=== PATIENT | female | born 1980 | race American Indian/Alaskan Native ===

== ENCOUNTER 2017-09-15 02:10 | Emergency (ER) | payer MEDICAID ==
[2017-09-15 04:25] LABS: Basophils % (Auto) 0.8 % (0.0-1.8); Eosinophils % (Auto) 2.1 % (0.0-4.3); Hemoglobin 13.5 gm/dl (10.1-14.3); Mean Corpuscular HGB Conc 32 % (30-34); Mean Corpuscular Volume 74 fl (79-97); Platelet Count 261 K/mm3 (140-440); Red Blood Count 5.65 M/mm3 (3.65-5.03); Red Cell Distribution Width 17.7 % (13.2-15.2); White Blood Count 6.6 K/mm3 (4.5-11.0)
[2017-09-15 04:35] LABS: Mean Corpuscular Hemoglobin 24 pg (28-32)
[2017-09-15 04:47] LABS: Alanine Aminotransferase 18 units/L (7-56); Albumin 3.7 g/dL (3.9-5); Albumin/Globulin Ratio 1.7 %; Alkaline Phosphatase 52 units/L (35-129); Anion Gap 13 mmol/L; BUN/Creatinine Ratio 14; Bilirubin,Total < 0.20 mg/dL (0.1-1.2); Blood Urea Nitrogen 11 mg/dL (7-17); Calcium 8.8 mg/dL (8.4-10.2); Carbon Dioxide 27 mmol/L (22-30); Glucose 102 mg/dL (65-100); Lipase 27 units/L (13-60); Potassium 4.1 mmol/L (3.6-5.0); Sodium 140 mmol/L (137-145); Total Protein 5.9 g/dL (6.3-8.2)
[2017-09-15 05:31] LABS: Bilirubin,Urine NEG (Negative); Blood,Urine NEG (Negative); Ketones,Urine NEG (Negative); Leukocyte Esterase,Urine NEG (Negative); Mucus,Urine FEW /HPF; Nitrite,Urine NEG (Negative); Protein,Urine <15 mg/dL mg/dL (Negative); Urobilinogen,Urine < 2.0 mg/dL (<2.0)
[2017-09-15] MEDS ORDERED: TORADOL IM ONE (08:55)
[2017-09-15 09:05] VITALS: BP 117/79
--- NOTE | 2017-09-15 15:33 | Emergency Department Report ---
HPI - General Chief Complaint: Abdominal Pain Time Seen by Provider: 09/15/17 08:55 - HPI HPI: The patient is a 37-year-old female presents for evaluation of abdominal pain. The patient reports left lower quadrant abdominal pain for the past one month, constant for the past one day, 8/10 in severity, crampy in quality, consistent with previous episodes of ovarian cyst pain. The patient denies fever, chills, night sweats, diarrhea, blood in the stool, dark tarry stool, dysuria, hematuria , flank pain, genital discharge, inability to pass flatus. ED Past Medical Hx - Past Medical History Previous Medical History?: Yes Hx Liver Disease: Yes Additional medical history: PCOS Fibroids and Cysts - Surgical History Past Surgical History?: Yes Additional Surgical History: C section x2 - Social History Smoking Status: Current Every Day Smoker Substance Use Type: None - Medications Home Medications: Home Medications Medication Instructions Recorded Confirmed Last Taken Type HYDROcodone/APAP 7.5-325 [[place] 1 each PO Q8HR PRN #10 tablet 09/15/17 Unknown Rx 7.5-325 mg TAB] Ibuprofen [Motrin] 800 mg PO Q8HR PRN #15 tablet 09/15/17 Unknown Rx ED Review of Systems ROS: Stated complaint: GENERAL BODY PAINS Other details as noted in HPI Constitutional: denies: fever ENT: denies: throat or neck pain Respiratory: denies: cough, shortness of breath Cardiovascular: denies: chest pain Endocrine: denies unexplained weight loss or gain Gastrointestinal: reports abdominal pain, nausea Genitourinary: denies: dysuria Musculoskeletal: denies: leg swelling Skin: denies: rash Neurological: denies: headache Hematological/Lymphatic: denies: easy bleeding or easy bruising Psych: denies sadness or hopelessness Physical Exam - Physical Exam Vital Signs: Vital Signs 09/15/17 09/15/17 09/15/17 03:46 06:35 06:40 Temperature 98.3 F Pulse Rate 62 Respiratory 100 H 18 Rate Blood Pressure 121/78 114/70 Blood Pressure 121/78 [Right] O2 Sat by Pulse 100 99 Oximetry 09/15/17 09/15/17 09/15/17 06:45 07:00 07:15 Temperature Pulse Rate Respiratory Rate Blood Pressure 114/70 104/68 104/68 Blood Pressure [Right] O2 Sat by Pulse 99 97 98 Oximetry 09/15/17 09/15/17 09/15/17 07:30 07:45 07:50 Temperature 97.9 F Pulse Rate 62 Respiratory 16 Rate Blood Pressure 105/64 105/64 Blood Pressure 105/64 [Right] O2 Sat by Pulse 97 100 99 Oximetry Physical Exam: General: well-nourished, well-developed, no acute distress Head: Normocephalic, atraumatic Eyes: normal sclera ENT: Mucous membranes are pink and moist Neck: trachea midline, neck supple, No neck stiffness, no cervical adenopathy Respiratory: Breath sounds equal bilaterally, no wheezing, rales, or rhonchi Cardio: S1 and S2 present, no murmurs, rubs, gallops, capillary refill is brisk Abdomen: Normoactive bowel sounds, soft abdomen, LLQ abd pain, no rigidity, no guarding or rebound tenderness Chest WALL/Back: No tenderness to palpation of the chest wall, no CVA tenderness with percussion Musc: No pitting edema Skin: No rash Neuro: no facial drooping, normal speech Psych: Normal affect ED Course Vital Signs 09/15/17 09/15/17 09/15/17 03:46 06:35 06:40 Temperature 98.3 F Pulse Rate 62 Respiratory 100 H 18 Rate Blood Pressure 121/78 114/70 Blood Pressure 121/78 [Right] O2 Sat by Pulse 100 99 Oximetry 09/15/17 09/15/17 09/15/17 06:45 07:00 07:15 Temperature Pulse Rate Respiratory Rate Blood Pressure 114/70 104/68 104/68 Blood Pressure [Right] O2 Sat by Pulse 99 97 98 Oximetry 09/15/17 09/15/17 09/15/17 07:30 07:45 07:50 Temperature 97.9 F Pulse Rate 62 Respiratory 16 Rate Blood Pressure 105/64 105/64 Blood Pressure 105/64 [Right] O2 Sat by Pulse 97 100 99 Oximetry ED Medical Decision Making - Lab Data Result diagrams: 09/15/17 04:07 09/15/17 04:07 - Medical Decision Making The patient was seen and examined by myself. The patient is placed on a radiographer cardiac catheterization and continuous pulse ox. On initial evaluation, the patient was found to be in no distress. Evaluation orders are placed. The patient is given pain medicine. Lab results were non-concerning including WBC, hemoglobin, hematocrit, electrolytes, renal function, LFTs, lipase, urinalysis, and negative tests.. The patient was reevaluated and reported that their symptoms were markedly improved. The patient is stable for discharge with outpatient follow-up. The patient is given follow-up and return instructions. The patient expressed understanding and agreed with the plan. The patient is discharged in stable condition. Critical care attestation.: If time is entered above; I have spent that time in minutes in the direct care of this critically ill patient, excluding procedure time. ED Disposition Clinical Impression: Abdominal pain, acute, left lower quadrant Disposition: TO HOME OR SELFCARE Is pt being admited?: No Does the pt Need Aspirin: No Condition: Stable Instructions: Ovarian Cyst (ED), Uterine Fibroids (ED), Abdominal Pain (ED) Prescriptions: HYDROcodone/APAP 7.5-325 [[place] 7.5-325 mg TAB] 1 each PO Q8HR PRN #10 tablet PRN Reason: Pain Ibuprofen [Motrin] 800 mg PO Q8HR PRN #15 tablet PRN Reason: Pain Referrals: PRIMARY CARE, [Primary Care Provider] - 3-5 Days [facility] [Provider Group] - 3-5 Days Time of Disposition: 08:56
== END 2017-09-15 09:28 | disposition home or self-care (01) ==
LOC: ED 02:10
DX: R10.32 Left lower quadrant pain (principal); F17.200 Nicotine dependence, unspecified, uncomplicated
CPT/HCPCS: 36415; 80053; 81001; 83690; 84703; 85025; 96372; 99284; J1885

== ENCOUNTER 2018-03-22 20:48 | Emergency (ER) | payer MEDICAID ==
[2018-03-22] MEDS ORDERED: ASPIRIN PO ONE (22:10)
[2018-03-22 22:53] LABS: Basophils # (Auto) 0.1 K/mm3 (0.0-0.1); Basophils % (Auto) 0.7 % (0.0-1.8); Eosinophils # (Auto) 0.2 K/mm3 (0.0-0.4); Eosinophils % (Auto) 2.1 % (0.0-4.3); Hematocrit 45.2 % (30.3-42.9); Hemoglobin 14.9 gm/dl (10.1-14.3); Lymphocytes # (Auto) 3.1 K/mm3 (1.2-5.4); Lymphocytes % (Auto) 35.5 % (13.4-35.0); Mean Corpuscular HGB Conc 33 % (30-34); Mean Corpuscular Volume 79 fl (79-97); Monocytes # (Auto) 0.7 K/mm3 (0.0-0.8); Monocytes % (Auto) 7.5 % (0.0-7.3); Platelet Count 207 K/mm3 (140-440); Red Blood Count 5.76 M/mm3 (3.65-5.03); Red Cell Distribution Width 16.1 % (13.2-15.2)
[2018-03-22 22:54] LABS: Mean Corpuscular Hemoglobin 26 pg (28-32)
[2018-03-22 23:08] LABS: BUN/Creatinine Ratio 20; Blood Urea Nitrogen 18 mg/dL (7-17); Calcium 8.7 mg/dL (8.4-10.2); Hemolysis Index 2
[2018-03-22 23:26] LABS: Bilirubin,Urine NEG (Negative); Blood,Urine NEG (Negative); Color,Urine Yellow (Yellow); Mucus,Urine FEW /HPF; Protein,Urine <15 mg/dL mg/dL (Negative); Urobilinogen,Urine < 2.0 mg/dL (<2.0)
[2018-03-23] MEDS ORDERED: ASPIRIN ONE (01:43)
--- NOTE | 2018-03-23 02:13 | Emergency Department Report ---
ED Chest Pain HPI - General Chief Complaint: Chest Pain Stated Complaint: CHEST PAIN Time Seen by Provider: 03/23/18 01:29 Source: patient Mode of arrival: Ambulatory Limitations: No Limitations - History of Present Illness Initial Comments: 37-year-old female presents to the emergency department from home, driving himself in to be seen, with complaint of some left-sided chest pain that started yesterday but worsened today. It is intermittent and goes between being sharp and dull/aching. She has some associated shortness of breath but denies any nausea, vomiting, fever, back pain or diaphoresis. She denies any past medical history other than some fibroids. She is a tobacco smoker but denies any listed drug use or abuse. Her mother had a heart attack in her late 50s. No recent travel or sick contacts at home. She has not taken anything for her symptoms prior to presentation. Severity scale (0 -10): 7 - Related Data Previous Rx's Medication Instructions Recorded Last Taken Type HYDROcodone/APAP 7.5-325 [[place] 1 each PO Q8HR PRN #10 tablet 09/15/17 Unknown Rx 7.5-325 mg TAB] Ibuprofen [Motrin] 800 mg PO Q8HR PRN #15 tablet 09/15/17 Unknown Rx Allergies Allergy/AdvReac Type Severity Reaction Status Date / Time No Known Allergies Allergy Verified 03/23/18 01:48 Heart Score - HEART Score History: Slightly suspicious EKG: Normal Age: < 45 Risk factors: 1-2 risk factors Troponin: < normal limit HEART Score: 1 ED Review of Systems ROS: Stated complaint: CHEST PAIN Other details as noted in HPI Comment: All other systems reviewed and negative Constitutional: denies: chills, fever Eyes: denies: eye pain, eye discharge, vision change ENT: denies: ear pain, throat pain Respiratory: shortness of breath. denies: cough Cardiovascular: chest pain. denies: edema Gastrointestinal: denies: abdominal pain, nausea, diarrhea Genitourinary: denies: urgency, dysuria, discharge Musculoskeletal: denies: back pain, joint swelling, arthralgia Skin: denies: rash, lesions Neurological: denies: headache, weakness, paresthesias ED Past Medical Hx - Past Medical History Previous Medical History?: Yes Hx Liver Disease: Yes Additional medical history: PCOS Fibroids and Cysts - Surgical History Past Surgical History?: Yes Additional Surgical History: C section x2 - Social History Smoking Status: Current Every Day Smoker Substance Use Type: Alcohol - Medications Home Medications: Home Medications Medication Instructions Recorded Confirmed Last Taken Type HYDROcodone/APAP 7.5-325 [[place] 1 each PO Q8HR PRN #10 tablet 09/15/17 Unknown Rx 7.5-325 mg TAB] Ibuprofen [Motrin] 800 mg PO Q8HR PRN #15 tablet 09/15/17 Unknown Rx ED Physical Exam - General Limitations: No Limitations - Other Other exam information: GENERAL: The patient is well-developed well-nourished. HENT: Normocephalic. Atraumatic. Patient has moist mucous membranes. EYES: Extraocular motions are intact. Pupils equal reactive to light bilaterally. NECK: Supple. Trachea is midline. CHEST/LUNGS: Clear to auscultation. There is no respiratory distress noted. HEART/CARDIOVASCULAR: Regular. There is no tachycardia. There is no murmur. ABDOMEN: Abdomen is soft, nontender. Patient has normal bowel sounds. There is no abdominal distention. SKIN: Skin is warm and dry. NEURO: The patient is awake, alert, and oriented. The patient is cooperative. The patient has no focal neurologic deficits. The patient has normal speech. MUSCULOSKELETAL: There is no tenderness or deformity. There is no limitation range of motion. There is no evidence of acute injury. ED Course Vital Signs 03/22/18 03/23/18 03/23/18 21:38 01:29 02:00 Temperature 98.9 F 98.1 F Pulse Rate 90 70 68 Respiratory 14 12 26 H Rate Blood Pressure 114/72 110/64 Blood Pressure 108/67 [Left] O2 Sat by Pulse 100 98 99 Oximetry 03/23/18 03:01 Temperature Pulse Rate Respiratory Rate Blood Pressure 104/65 Blood Pressure [Left] O2 Sat by Pulse 94 Oximetry MANOJ score - Manoj Score Age > 65: (0) No Aspirin use within the Past 7 Days: (0) No 3 or more CAD Risk Factors: (0) No 2 or more Angina events in past 24 hrs: (1) Yes Known CAD with more than 50% Stenosis: (0) No Elevated Cardiac Markers: (0) No ST Deviation Greater than 0.5mm: (0) No MANOJ Score: 1 ED Medical Decision Making - Lab Data Result diagrams: 03/22/18 22:20 03/22/18 22:20 - EKG Data -: EKG Interpreted by Me EKG shows normal: sinus rhythm, axis, intervals, QRS complexes, ST-T waves Rate: normal - EKG Data When compared to previous EKG there are: previous EKG unavailable Interpretation: normal EKG - Radiology Data Radiology results: report reviewed, image reviewed interpreted by me: Chest x-ray does not show any acute process. There are no pleural effusions, obvious pneumonia and there is no pneumothorax. CT angiography of the chest does not show any pulmonary embolism, dissection or any acute process. - Medical Decision Making Patient has been dealing with some intermittent sharp and then dull chest pains for the past 1-2 days. EKG does not show any signs of ST elevation AR or ischemia. Chest x-ray does not show any acute process. Troponins have been negative 2. She had a slightly elevated and equivocal d-dimer so a CT angiography of the chest was done that does not show any pulmonary emboli or any dissection or any other acute process. She was reevaluated multiple times over multiple hours and is feeling improved. She is low on the Sparks score criteria and has a low MANOJ score. Vital signs stable throughout her ED course. For all these reasons she appears safe for discharge home at this time but has been encouraged to follow up with cardiology outpatient and to return to the emergency Department with any worsening of her symptoms or any acute distress. - Differential Diagnosis AR, PE, costochondritis, GERD Critical Care Time: No Critical care attestation.: If time is entered above; I have spent that time in minutes in the direct care of this critically ill patient, excluding procedure time. ED Disposition Clinical Impression: Tobacco use disorder Chest pain Qualifiers: Chest pain type: unspecified Qualified Code(s): R07.9 - Chest pain, unspecified Disposition: DC-01 TO HOME OR SELFCARE Is pt being admited?: No Condition: Stable Instructions: Chest Pain (ED), How to Stop Smoking (ED) Additional Instructions: Please follow up with a primary care physician in the next few days. I have given a referral for a local personal lines agent, Dr. Giles, to follow up regarding your intermittent chest pains. Return to the emergency Department with any worsening of your symptoms or any acute distress. Referrals: PRIMARY CARE, [Primary Care Provider] - 3-5 Days ANDREEA GILES MD [Staff Physician] - 3-5 Days Time of Disposition: 03:57
--- NOTE | 2018-03-23 03:12 | XRay Report ---
FINAL REPORT EXAM: XR CHEST 1V AP HISTORY: CP TECHNIQUE: A portable upright view the chest was submitted. FINDINGS: The heart size and mediastinum appear normal. The lungs are clear. Pleural fluid is not seen. The bones and soft tissues do not show any acute changes. IMPRESSION: No active chest disease.
[2018-03-23 03:29] VITALS: BP 104/65
--- NOTE | 2018-03-23 03:33 | Cat Scan Report ---
FINAL REPORT EXAM: CT ANGIO CHEST HISTORY: CP, elevated dimer TECHNIQUE: A CT angiogram was performed following the intravenous injection of iodinated contrast. Sagittal and coronal MIP reconstructions were reviewed. FINDINGS: There is no evidence of pulmonary embolus, vascular congestion, or aortic dissection. The thoracic aorta is normal in diameter. The heart size is normal. Adenopathy is not seen. The lungs are clear. Pleural fluid is not seen. In the upper abdomen the adrenal glands are not enlarged. The skeletal structures are well-maintained. At the thoracic inlet the thyroid gland appears normal. IMPRESSION: No evidence of pulmonary embolus or aortic dissection. No acute process in the chest
== END 2018-03-23 04:25 | disposition home or self-care (01) ==
LOC: ED 20:48
DX: R07.9 Chest pain, unspecified (principal); F17.200 Nicotine dependence, unspecified, uncomplicated
CPT/HCPCS: 36415; 71045; 71275; 80048; 81001; 84484; 85025; 85379; 93005; 93010; 99285; Q9967

== ENCOUNTER 2021-04-12 13:26 | Emergency (ER) | payer MEDICAID, OTHER ==
[2021-04-12 14:55] VITALS: BP 136/91
[2021-04-12] MEDS ORDERED: KETOROLAC 60 MG/2 ML INJ IM ONE (17:58)
[2021-04-12] MEDS ORDERED: dexAMETHasone 20 MG/5 ML VIAL IM ONE (17:58)
--- NOTE | 2021-04-12 18:04 | Emergency Department Report ---
ED Extremity Problem HPI - General Chief complaint: Extremity Problem,Nontraumatic Stated complaint: BOTH HAND PAIN, NUMB LT BACK Time Seen by Provider: 04/12/21 17:12 Source: patient Mode of arrival: Ambulatory Limitations: No Limitations - History of Present Illness Initial comments: Patient is a 40-year-old female presents emergency room with complaints of 2 complaints. She states her first complaint is right-sided neck pain that radiates into her right shoulder which causes tingling down her right arm. She states that the pain is worse if she lays on the right shoulder. She denies any complete numbness. She denies any weakness. She is still able to use the arm without any difficulty. She denies any fall or injury. She denies any arm swelling or skin changes. Patient states that she also has an exacerbation of her sciatica. She states that it has been giving her problems over the last couple months but exacerbated in the last few days. She has not followed up with orthopedic doctor or custom framing specialist. She is complaining of left lower back pain that radiates to her left gluteus and down her left leg. She denies any fall or injuries to her back. She denies any numbness, weakness, bowel or bladder incontinence, saddle numbness, fever, nausea, vomiting, diarrhea, urinary symptoms. Patient has a past medical history of PCOS. No allergies to medications. She denies any history of diabetes. Severity scale (0 -10): 8 - Related Data Previous Rx's Medication Instructions Recorded Last Taken Type HYDROcodone/APAP 7.5-325 [[place] 1 each PO Q8HR PRN #10 tablet 09/15/17 Unknown Rx 7.5-325 mg TAB] Ibuprofen [Motrin] 800 mg PO Q8HR PRN #15 tablet 09/15/17 Unknown Rx Menthol/Camphor [[place] 1 applicatio TP BID #18 oint...g. 04/12/21 Unknown Rx Ointment] Naproxen [EC-Naprosyn] 500 mg PO BID PRN #20 tablet. 04/12/21 Unknown Rx Prednisone [predniSONE 10 mg 10 mg PO .TAPER #1 tab.ds.pk 04/12/21 Unknown Rx (6-Day Pack, 21 Tabs)] methOCARBAMOL [Robaxin TAB] 500 mg PO BID PRN #20 tab 04/12/21 Unknown Rx Allergies Allergy/AdvReac Type Severity Reaction Status Date / Time No Known Allergies Allergy Verified 03/23/18 01:48 ED Review of Systems ROS: Stated complaint: BOTH HAND PAIN, NUMB LT BACK Other details as noted in HPI Comment: All other systems reviewed and negative ED Past Medical Hx - Past Medical History Previous Medical History?: Yes Hx Liver Disease: Yes Additional medical history: PCOS Fibroids and Cysts - Surgical History Past Surgical History?: Yes Additional Surgical History: C section x2 - Social History Smoking Status: Current Every Day Smoker Substance Use Type: Alcohol - Medications Home Medications: Home Medications Medication Instructions Recorded Confirmed Last Taken Type HYDROcodone/APAP 7.5-325 [[place] 1 each PO Q8HR PRN #10 tablet 09/15/17 Unknown Rx 7.5-325 mg TAB] Ibuprofen [Motrin] 800 mg PO Q8HR PRN #15 tablet 09/15/17 Unknown Rx Menthol/Camphor [[place] 1 applicatio TP BID #18 oint...g. 04/12/21 Unknown Rx Ointment] Naproxen [EC-Naprosyn] 500 mg PO BID PRN #20 tablet. 04/12/21 Unknown Rx Prednisone [predniSONE 10 mg 10 mg PO .TAPER #1 tab.ds.pk 04/12/21 Unknown Rx (6-Day Pack, 21 Tabs)] methOCARBAMOL [Robaxin TAB] 500 mg PO BID PRN #20 tab 04/12/21 Unknown Rx ED Physical Exam - General Limitations: No Limitations General appearance: alert, in no apparent distress - Head Head exam: Present: atraumatic, normocephalic - Eye Eye exam: Present: normal appearance - ENT ENT exam: Present: mucous membranes moist - Neck Neck exam: Present: normal inspection, full ROM. Absent: tenderness, meningismus - Respiratory Respiratory exam: Present: normal lung sounds bilaterally. Absent: respiratory distress, wheezes, rales, rhonchi, stridor, chest wall tenderness, accessory muscle use, decreased breath sounds, prolonged expiratory - Cardiovascular Cardiovascular Exam: Present: regular rate, normal rhythm, normal heart sounds. Absent: systolic murmur, diastolic murmur, rubs, gallop - Extremities Exam Extremities exam: Present: normal inspection, full ROM, normal capillary refill, other (no bony ttp of the BUE, FROM of the BUE, no deformity, no edema, no skin changes, no ecchymosis, neurovascularly intact). Absent: tenderness, pedal edema, joint swelling, calf tenderness - Back Exam Back exam: Present: normal inspection, full ROM, paraspinal tenderness (mild left lumbar paraspinal ttp, no midline C-spine, T-spine or L-spine ttp, no step offs, no deformities). Absent: vertebral tenderness - Neurological Exam Neurological exam: Present: alert, oriented X3, CN II-XII intact, normal gait. Absent: motor sensory deficit - Psychiatric Psychiatric exam: Present: normal affect, normal mood - Skin Skin exam: Present: warm, dry, intact ED Course Vital Signs 04/12/21 04/12/21 14:54 18:23 Temperature 98.4 F Pulse Rate 75 Respiratory 18 16 Rate Blood Pressure 136/91 [Right] O2 Sat by Pulse 99 Oximetry ED Medical Decision Making - Medical Decision Making Patient is a 40-year-old female presents emergency room with complaints of 2 complaints. She states her first complaint is right-sided neck pain that radiates into her right shoulder which causes tingling down her right arm. She states that the pain is worse if she lays on the right shoulder. She denies any complete numbness. She denies any weakness. She is still able to use the arm without any difficulty. She denies any fall or injury. She denies any arm swelling or skin changes. Patient states that she also has an exacerbation of her sciatica. She states that it has been giving her problems over the last couple months but exacerbated in the last few days. She has not followed up with orthopedic doctor or custom framing specialist. She is complaining of left lower back pain that radiates to her left gluteus and down her left leg. She denies any fall or injuries to her back. She denies any numbness, weakness, bowel or bladder incontinence, saddle numbness, fever, nausea, vomiting, diarrhea, urin kandy symptoms. Patient has a past medical history of PCOS. No allergies to medications. She denies any history of diabetes. Vitals are stable. On exam:mild left lumbar paraspinal ttp, no midline C-spine, T-spine or L-spine ttp, no step offs, no deformities, no bony ttp of the BUE, FROM of the BUE, no deformity, no edema, no skin changes, no ecchymosis, neurovascularly intact. Patient is presenting with symptoms most consistent with cervical radiculopathy and sciatica. Patient has had no acute trauma, she has no red flag warning signs of back pain, no unexplained weight loss, no neuro deficits, no fever, no IV drug use, no steroid use, no history of cancer. She has no clinical signs of septic joint, no clinical signs of cauda equina or conus medullaris. she is ambulatory without difficulty. Her symptoms have been ongoing for a few months. Patient given medications while in the emergency department with improvement of her symptoms. Patient given prescription for medications. Advised patient Please use medication as prescribed. Do not drive or operate machinery while taking muscle relaxer Robaxin. May use ice pack, heating pad, rest, and epsom salt bath. Do not use [place] balm ointment while using heat or ice. Follow-up with your primary care doctor. Follow-up with orthopedic/spine doctor. Return to emergency room for new or worsening symptoms. Critical care attestation.: If time is entered above; I have spent that time in minutes in the direct care of this critically ill patient, excluding procedure time. ED Disposition Clinical Impression: Arm paresthesia, right, Neck pain on right side Right shoulder pain Qualifiers: Chronicity: acute Qualified Code(s): M25.511 - Pain in right shoulder Low back pain Qualifiers: Chronicity: acute Back pain laterality: left Sciatica presence: with sciatica Sciatica laterality: sciatica of left side Qualified Code(s): M54.42 - Lumbago with sciatica, left side Disposition: TO HOME OR SELFCARE Is pt being admited?: No Does the pt Need Aspirin: No Condition: Stable Additional Instructions: Please use medication as prescribed. Do not drive or operate machinery while taking muscle relaxer Robaxin. May use ice pack, heating pad, rest, and epsom salt bath. Do not use [place] balm ointment while using heat or ice. Follow-up with your primary care doctor. Follow-up with orthopedic/spine doctor. Return to emergency room for new or worsening symptoms. Prescriptions: Naproxen [EC-Naprosyn] 500 mg PO BID PRN #[address] tablet[address] MALONEY Reason: pain Prednisone [predniSONE 10 mg (6-Day Pack, 21 Tabs)] 10 mg PO .TAPER #1 tab.ds.pk methOCARBAMOL [Robaxin TAB] 500 mg PO BID PRN #20 tab PRN Reason: muscle spasm/pain Menthol/Camphor [[place] Ointment] 1 applicatio TP BID #18 oint...g. Referrals: [facility] [Provider Group] - 2-3 Days TARIK JOLLY II, MD [Staff Physician] - 2-3 Days Forms: Work/School Release Form(ED) Time of Disposition: 18:02 Print Language: IRISH
== END 2021-04-12 18:33 | disposition home or self-care (01) ==
LOC: ED 13:26
DX: M54.5 Low back pain (principal); M54.2 Cervicalgia; M25.511 Pain in right shoulder; R20.2 Paresthesia of skin; F17.200 Nicotine dependence, unspecified, uncomplicated; Z98.890 Other specified postprocedural states; Z79.1 Long term (current) use of non-steroidal anti-inflammatories (NSAID); Z79.899 Other long term (current) drug therapy
CPT/HCPCS: 96372; 99282; J1100; J1885

== ENCOUNTER 2021-05-12 12:58 | Outpatient (CLI) | payer OTHER ==
--- NOTE | 2021-05-12 15:29 | XRay Report ---
LUMBOSACRAL SPINE 5 VIEWS INDICATION: LOWER BACK PAIN. COMPARISON: None. IMPRESSION: There is 6 mm anterolisthesis of L4 with respect to L5. The remaining lumbar vertebra ar e normal in alignment. Mild disc space narrowing is evident at L4-5 and L5-S1. Moderate facet arthro irwin is identified at L4-5. There is suggestion of mild bilateral neural foraminal narrowing at L4-5 on the oblique images. No acute osseous or soft tissue abnormality. Signer Name: Sidney Rodrigues Jr, MD Signed: 05/12/2021 3:24 PM Workstation Name: [id number]
--- NOTE | 2021-05-13 10:26 | Mammography Report ---
DIGITAL SCREENING MAMMOGRAM WITH TOMOSYNTHESIS WITH CAD, 05/12/2021 INDICATION: Routine Screening Mammography. SCREENING MAMMOGRAM TECHNIQUE: Digital bilateral 2D and 3D mammography with tomosynthesis was obtained in the craniocau anatoly and mediolateral oblique projections. Computer-Aided Detection (CAD) analysis was used for inter pretation of this study. COMPARISON: None. FINDINGS: Breast Density: There are scattered areas of fibroglandular density. There is no evidence of dominant mass, suspicious calcifications or architectural distortion in eithe r breast. Bilateral benign calcification. IMPRESSION: Follow up recommendation: Routine yearly BI-RADS Category 2: Benign. A "normal" or negative report should not discourage follow up or biopsy of a clinically significant f inding. A written summary of these findings will be mailed to the patient. The patient will be entered into a mammography reporting system which will generate a reminder letter for the patient's next appointmen t at the appropriate interval. [employer] recommends yearly mammograms starting at age 40 and continuing as l nirav as a woman is in good health. Breast MRI is recommended for women with an approximate 20-25% or greater lifetime risk of breast cancer, including women with a strong family history of breast or ova alexandra cancer or who have been treated for Hodgkin's disease. Signer Name: Michael Hilliard MD Signed: 05/13/2021 10:21 AM Workstation Name: [id number]
== END 2021-05-12 12:59 | disposition home or self-care (01) ==
LOC: XRAY 12:58
PROVIDERS: ATTEND Nurse Practitioner Family
DX: Z12.31 Encounter for screening mammogram for malignant neoplasm of breast (principal); M43.16 Spondylolisthesis, lumbar region
CPT/HCPCS: 72110; 77067